=== PATIENT | female | born 1985 | race Asian ===

== ENCOUNTER 2017-07-15 16:05 | Emergency (ER) | payer BC, MEDICAID ==
[~2017-07-15] VITALS: Ht 157.5 cm; Wt 40.8 kg
[~2017-07-15 16:05] MED LIST: ALBUTEROL SULF8.5 GM INH; CHERATUSSIN AC118 ML PO; ZITHROMAX250 MG ORAL
[2017-07-15 16:30] VITALS: BP 103/63
[2017-07-15] MEDS ORDERED: PREDNISONE20 MG ORAL (18:14)
[2017-07-15] MEDS ORDERED: CLARITIN10 M2 ORAL (18:15)
[2017-07-15] MEDS ORDERED: ALBUTEROL SULF8.5 GM INH (18:15)
[2017-07-15 18:33] VITALS: BP 97/51
[2017-07-15 18:34] VITALS: BP 97/51
--- NOTE | 2017-07-16 13:16 | Diagnostic Imaging Report ---
Indication: Dyspnea Comparison: None A single view chest radiograph was obtained. Findings: Cardiomediastinal appearance is within normal limits for age. Pulmonary vascularity is appropriate. The diaphragmatic contour is smooth and costophrenic angles are sharp. No pleural effusions are identified. The bones are unremarkable. Impression: No acute findings
--- NOTE | 2017-07-17 00:59 | Emergency Room Report ---
History of Present Illness General Chief Complaint: Dyspnea/Respdistress Source: Patient Present Illness HPI Patient 31-year-old female who presented after increased difficulty breathing. Patient had reported increased sore throat. She reported having a gradual onset of symptoms. She stated that she had worsening she denied any leg pain or swelling. She had not been having a productive cough. She denies recent fever Allergies: Coded Allergies: CEPHALEXIN (Verified Allergy, Unknown, 07/15/17) Patient History Past Medical History: see triage record Last Menstrual Period: 06/14/17 Now: No : 2 Para: 2 Reviewed Nursing Documentation: PMH: Agreed, PSxH: Agreed Nursing Documentation-PMH Past Medical History: No Stated History Review of Systems All Other Systems: negative except mentioned in HPI Physical Exam Vital Signs Date Time Temp Pulse Resp B/P (MAP) Pulse Ox O2 Delivery O2 Flow Rate FiO2 07/15/17 16:19 98.6 72 16 101/68 98 Room Air 07/15/17 16:36 100 Sp02 EP Interpretation: reviewed, normal General Appearance: normal inspection, well appearing, no apparent distress, alert, GCS 15 Head: atraumatic ENT: normal ENT inspection, hearing grossly normal, normal voice Neck: normal inspection, full range of motion, supple, no bony tend Respiratory: normal inspection, lungs clear, normal breath sounds, no respiratory distress, no retraction, no wheezing Cardiovascular #1: regular rate, rhythm, no edema Gastrointestinal: normal inspection, normal bowel sounds, non tender, soft, no guarding, no hernia Genitourinary: no CVA tenderness Musculoskeletal: normal inspection, back normal, normal range of motion Neurologic: normal inspection, alert, oriented x3, responsive, accountant controller III-XII nml as tested, speech normal Psychiatric: normal inspection, judgement/insight normal, mood/affect normal Skin: normal inspection, normal color, no rash Medical Decision Making Diagnostic Impression: Primary Impression: Allergy ER Course Patient presented for shortness of breath. Differential included but was not limited to anemia, pneumonia, pneumothorax, myocardial infarction, pericardial effusion, congestive heart failure, acidosis. Patient's benign exam and does not appear to require any further laboratory testing at this time. A chest x- ray one view interpreted by me showed normal lung hart without evident infiltrate. EKG interpreted by me showed normal sinus rhythm without acute ST or T changes.Patient was observed in the emergency department and was stable throughout stay. The patient is advised to follow up with primary care doctor in 1-2 days. Patient is advised to return if any worsening condition or if any changes in status that are concerning. Last Vital Signs Date Time Temp Pulse Resp B/P (MAP) Pulse Ox O2 Delivery O2 Flow Rate FiO2 07/15/17 18:34 76 16 97/51 100 Room Air 07/15/17 16:36 100 07/15/17 16:30 98.6 Status: improved Disposition: HOME, SELF-CARE Condition: Stable Scripts Loratadine (CLARITIN) 10 Mg Capsule 10 MG ORAL DAILY, #14 CAP Prov: Grey Melendez 07/15/17 Albuterol Sulfate* (ALBUTEROL SULFATE MDI*) 8.5 Gm Hfa.aer.ad 2 PUFF INH Q4H Y for cough/wheezing, #1 EA 0 Refills Prov: Grey Melendez 07/15/17 Prednisone* (PREDNISONE*) 20 Mg Tablet 20 MG ORAL DAILY, #5 TAB Prov: Grey Melendez 07/15/17 Patient Instructions: Allergies Grey Melendez Jul 17, 2017 00:59
--- NOTE | 2017-07-19 16:04 | Cardiology Report ---
APPROVED REPORT EKG Measurement Heart [id number] 130P64 [id number] Normal sinus rhythm Normal ECG
== END 2017-07-15 18:40 | disposition home or self-care (01) ==
LOC: EMR 16:51
DX: T78.40XA Allergy, unspecified, initial encounter (principal); X58.XXXA Exposure to other specified factors, initial encounter; R06.00 Dyspnea, unspecified; Z88.1 Allergy status to other antibiotic agents
CPT/HCPCS: 71010; 93005; 99284

== ENCOUNTER 2019-01-29 11:39 | Emergency (ER) | payer SELFPAY ==
[~2019-01-29] VITALS: Ht 154.9 cm; Wt 49.9 kg
[~2019-01-29 11:39] MED LIST changes: +CLARITIN10 M2 ORAL; +PREDNISONE20 MG ORAL
[2019-01-29] MEDS ORDERED: NKM (11:46)
[2019-01-29 11:48] VITALS: BP 95/61
--- NOTE | 2019-01-29 11:52 | NUR ---
ED Nurse Note: Patient walked into ED c/o chest pain that has been an ongoing issue for 3 weeks now. patient came to ED due to feeling a sharp pain that she rates a 7/10 located in her sternum last night. EKG showed normal sinus rhythm. patient is alert and oriented x4, ambulatory with a steady gait, VSS.
--- NOTE | 2019-01-29 12:01 | Emergency Room Report ---
History of Present Illness General Chief Complaint: Chest Pain Source: Patient Present Illness HPI Patient presents with complaints of having off-and-on nonspecific midsternal chest pain for the past 2-3 weeks Feels that when she lays down the discomfort worsens Denies any vomiting or diarrhea denies any fevers or chills denies any cough patient reports that she had a history of smoking about one year ago intermittently Denies any recent travel denies any pleurisy Pain is a sharp pain she also feels some radiation in the mid upper back area Allergies: Coded Allergies: CEPHALEXIN (Verified Allergy, Unknown, 07/15/17) Patient History Past Medical History: see triage record Pertinent Family History: none Last Menstrual Period: 01/15/19 Reviewed Nursing Documentation: PMH: Agreed; PSxH: Agreed Nursing Documentation-PM Past Medical History: No Stated History Review of Systems All Other Systems: negative except mentioned in HPI Physical Exam Vital Signs Date Time Temp Pulse Resp B/P (MAP) Pulse Ox O2 Delivery O2 Flow Rate FiO2 01/29/19 11:44 98.4 74 18 95/61 98 Room Air Sp02 EP Interpretation: reviewed, normal General Appearance: well appearing, no apparent distress Head: normocephalic, atraumatic Eyes: bilateral eye PERRL, bilateral eye EOMI ENT: hearing grossly normal, normal pharynx, TMs + canals normal, uvula midline Neck: full range of motion, supple, no meningismus, no bony tend Respiratory: lungs clear, normal breath sounds, no rhonchi, no respiratory distress, no retraction, no accessory muscle use Cardiovascular #1: normal peripheral pulses, regular rate, rhythm, no edema, no gallop, no JVD, no murmur Gastrointestinal: normal bowel sounds, non tender, soft, no mass, no organomegaly, non-distended, no guarding, no hernia, no pulsatile mass, no rebound Genitourinary: no CVA tenderness Musculoskeletal: normal inspection Neurologic: oriented x3, responsive, cake cutter machine III-XII nml as tested, motor strength/ tone normal, sensory intact Psychiatric: mood/affect normal Skin: normal color, no rash, warm/dry, palpation normal Lymphatic: normal inspection, no adenopathy Medical Decision Making Diagnostic Impression: Primary Impression: Chest pain ER Course Patient is a fairly complex patient with multiple differential to consideration including but not limited to cardiac cardiopulmonary and vascular emergencies Patient's EKG and chest x-ray are appropriate Given these findings consideration for cardiac pathology is low patient does not have any other risk factors and has significantly low score for cardiac pathology Patient was prescribed Pepcid consideration of possible gastric pathology And requires close outpatient follow-up EKG Diagnostic Results Rate: normal Rhythm: NSR ST Segments: no acute changes Rhythm Strip Diag. Results EP Interpretation: yes Rate: 60 Rhythm: NSR, no PVC's, no ectopy Chest X-Ray Diagnostic Results Chest X-Ray Diagnostic Results : Chest X-Ray Ordered: Yes # of Views/Limited/Complete: 1 View Indication: Chest Pain EP Interpretation: Yes Interpretation: no consolidation, no effusion, no pneumothorax Impression: No acute disease Electronically Signed by: Cecilia Cueto DO Last Vital Signs Date Time Temp Pulse Resp B/P (MAP) Pulse Ox O2 Delivery O2 Flow Rate FiO2 01/29/19 11:48 74 18 Room Air 01/29/19 11:48 98.4 95/61 98 Status: improved Disposition: HOME, SELF-CARE Condition: Improved Scripts Famotidine (PEPCID AC) 20 Mg Tablet 20 MG PO DAILY, #12 TAB Prov: Cecilia Cueto DO 01/29/19 Additional Instructions: Patient is provided with the discharge instructions notified to follow up with primary doctor in the next 2-3 days otherwise return to the er with any worsening symptoms. Please note that this report is being documented using [employer] technology. This can lead to erroneous entry secondary to incorrect interpretation by the dictating instrument. Cecilia Cueto DO Jan 29, 2019 12:01
[2019-01-29] MEDS ORDERED: PEPCID AC20 M2 PO (12:21)
--- NOTE | 2019-01-29 12:30 | Diagnostic Imaging Report ---
EXAM: XR Chest, 1 View CLINICAL HISTORY: Chest pain TECHNIQUE: Frontal view of the chest. COMPARISON: Chest x-ray dated 07/15/17 FINDINGS: Lungs: Unremarkable. The lungs appear clear. No focal consolidation. Pleural space: Unremarkable. The costophrenic angles are sharp. No visible pneumothorax. Heart: Unremarkable. No cardiomegaly. Mediastinum: Unremarkable. Bones/joints: Unremarkable. IMPRESSION: No acute findings.
[2019-01-29 12:33] VITALS: BP 108/75
--- NOTE | 2019-01-29 12:33 | NUR ---
ED Nurse Note: Pt seen, treated, medically cleared for discharge by Health Care Provider. Discharge instructions/ACI given and explained to pt and verbalized understanding of teachings. All medical devices such as ID band removed. Pt is AAO x4, ambulatory and left with all personal belongings.
--- NOTE | 2019-01-31 12:45 | Cardiology Report ---
APPROVED REPORT EKG Measurement Heart [id number] 132P76 [id number] Normal sinus rhythm Normal ECG
== END 2019-01-29 12:35 | disposition home or self-care (01) ==
LOC: EMR 12:35
DX: R07.89 Other chest pain (principal); Z88.1 Allergy status to other antibiotic agents
CPT/HCPCS: 71045; 93005; 99283